=== PATIENT | female | born 1955 | race Caucasian/White ===

== ENCOUNTER 2016-07-30 23:29 | Emergency (ER) | payer OTHER ==
--- NOTE | 2016-07-30 23:35 | PDOC ---
History of Present Illness - General Chief Complaint: Respiratory Stated Complaint: " i AM HAVING AN ASTHMA ATTACK" Time Seen by Provider: 07/30/16 23:34 - History of Present Illness Initial Comments: This 61-year-old woman with a history of HTN, history of breast cancer, GERD, asthma is currently undergoing diagnostic workup for asthma. Patient has had nonproductive chronic cough for the last 3 months. She states she is seeing a manager assisted living who has diagnosed her as having "moderate persistent asthma". Full pulmonary function tests are scheduled for this coming week. Meanwhile, she has been placed on ipratropium nasal spray and steroid nasal spray. Tonight , she had persisting cough and feeling of shortness of breath. She called her manager assisted living group and was told to come to the emergency room for nebulizer treatment and steroids therapy. Patient has no history of smoking since quitting at age 24. She has no history of exposure to secondhand smoke. No known environmental/inhalational ALLERGIES. She does state that her mother who is a nonsmoker also had asthma. No recent fevers/chills, production of sputum or audible wheezing. Past History - Past Medical History Allergies/Adverse Reactions: Allergies Allergy/AdvReac Type Severity Reaction Status Date / Time levofloxacin [From Levaquin] Allergy Verified 07/30/16 23:30 Penicillins Allergy Verified 07/30/16 23:30 Sulfa (Sulfonamide Allergy Verified 07/30/16 23:30 Antibiotics) Home Medications: Ambulatory Orders Alprazolam [Xanax] 0.5 mg PO ASDIR PRN 02/29/16 Anastrozole [Arimidex -] 1 mg PO DAILY 02/29/16 Aspirin [Aspirin EC] 81 mg PO DAILY 02/29/16 Atenolol [Tenormin -] 5 mg PO DAILY 02/29/16 Chlordiazepoxide [Librium -] 25 mg PO DAILY 02/29/16 Cyanocobalamin [Vitamin B12 -] 100 mcg PO DAILY 02/29/16 Ezetimibe [Zetia] 10 mg PO DAILY 02/29/16 L.acidoph,Paracasei, B.lactis [Probiotic] 1 each PO DAILY 02/29/16 Lamotrigine [Lamictal] 100 mg PO DAILY 02/29/16 Colwell-3 Fatty Acids [Fish Oil] 300 mg PO DAILY 02/29/16 Acetaminophen [Tylenol .Regular Strength -] 650 mg PO Q4H PRN #0 tablet Magnesium 250 mg PO DAILY #30 tablet 03/01/16 Ipratropium 0.02% Nebulizer [Atrovent] 1 neb NEB TID #30 vial 07/31/16 Methylprednisolone [Medrol Dose Isacc] 4 mg PO ASDIR #21 tablet 07/31/16 Nebulizer [Lc D Nebulizer Set] 1 each NEB QID PRN #1 each 07/31/16 Anemia: No Asthma: No Cancer: Yes (LEFT BREAST CANCER) Cardiac Disorders: Yes (SVT) CVA: No COPD: No CHF: No Dementia: No Diabetes: No GI Disorders: Yes (gerd w/large esophageal ulcer) Disorders: No HTN: Yes Hypercholesterolemia: Yes Liver Disease: No Psychiatric Problems: Yes (depression) Seizures: No Thyroid Disease: No - Surgical History Abdominal Surgery: No Appendectomy: Yes Cardiac Surgery: No Cholecystectomy: No Lung Surgery: No Neurologic Surgery: No Orthopedic Surgery: No - Immunization History Td Vaccination: No - Psycho/Social/Smoking Cessation Hx Anxiety: No Suicidal Ideation: No Smoking Status: No Smoking History: Never smoked Have you smoked in the past 12 months: Yes Number of Cigarettes Smoked Daily: 0 Hx Alcohol Use: No Drug/Substance Use Hx: No Substance Use Type: None Hx Substance Use Treatment: No Review of Systems - Review of Systems Able to Perform ROS?: Yes Comments:: 12 point review of systems is negative except for what is noted in the history of present illness *Physical Exam - Physical Exam Comments: GENERAL:adult female, alert and oriented 3, coughing frequently but speaking in full sentences HEAD: Normal with no signs of trauma. EYES: PERRLA, EOMI, sclera anicteric, conjunctiva clear. ENT: Ears normal, nares patent, oropharynx clear without exudates. Dry mucous membranes. NECK: Normal range of motion, supple without lymphadenopathy, JVD, or masses. LUNGS: Breath sounds equal, clear to auscultation bilaterally. No wheezes, and no crackles. HEART:Regular rate and rhythm, normal S1 and S2 without murmur, rub or gallop. ABDOMEN:.normal bowel sounds No guarding,tenderness or rebound.No masses No distention. EXTREMITIES: Normal range of motion, no edema. No clubbing or cyanosis. No erythema, or tenderness. NEUROLOGICAL: Cranial nerves II through XII grossly intact. Normal speech. No focal neurological deficits. MUSCULOSKELETAL: Back non-tender to palpation, no CVA tenderness SKIN: Warm, Dry, normal turgor, no rashes or lesions noted. initial peak flow is 160 L/minute Progress Note - Progress Note Progress Note: Because the patient has sulfa ALLERGY, ipratropium nebulizer will be administered. Solu-Medrol 125 mg will be given IV. Medical Decision Making - Medical Decision Making 07/31/16 01:47 Patient improved symptomatically after 2 nebulizer treatments of Atrovent and 125 mg of Solu-Medrol IV. Patient will be discharged with follow-up with her manager assisted living. Prescriptions for ipratropium nebulizer treatments to be used up to 4 times a day as needed for shortness of breath/wheezing and Medrol Dosepak will be sent to her pharmacy. She should return to the emergency room if she has persistent shortness of breath or develops wheezing/fever/productive cough. *DC/Admit/Observation/Transfer Diagnosis at time of Disposition: Asthma exacerbation - Discharge Dispostion Disposition: HOME Condition at time of disposition: Stable - Prescriptions Prescriptions: Ipratropium 0.02% Nebulizer [Atrovent] 1 neb NEB TID #30 vial Nebulizer [Lc D Nebulizer Set] 1 each NEB QID PRN #1 each PRN Reason: Shortness Of Breath Methylprednisolone [Medrol Dose Isacc] 4 mg PO ASDIR #21 tablet - Patient Instructions Printed Discharge Instructions: Asthma -- Adult Additional Instructions: Medrol dosepak: taper as directed, start tomorrow Atrovent nebulizer treatment as needed up to 4 times day followup with your manager assisted living as scheduled return to ER if you have shortness of breath or persistent wheezing
[2016-07-31] MEDS ORDERED: IPRATROPIUM BR 0.02% 0.5 MG/2.5 ML VIAL.NEB. NEB ONE ×4 (00:01→01:08)
[2016-07-31] MEDS ORDERED: methylPREDNISolone NA SUCC 125 MG/2 ML VIAL IVPUSH ONE (00:02)
[2016-07-31] MEDS ORDERED: methylPREDNISolone NA SUCC 125 MG/2 ML VIAL ONE (00:04)
[2016-07-31 00:35] VITALS: TEMP 98.6; BMI 24.5
[2016-07-31 01:53] VITALS: BP 142/82; PULSE 88
== END 2016-07-31 01:53 | disposition home or self-care (01) ==
LOC: FER 23:29
PROC: 3E0F7GC Introduction of Other Therapeutic Substance into Respiratory Tract, Via Natural or Artificial Opening (ICD-10-PCS; principal; 2016-07-30)
PROC: 3E033GC Introduction of Other Therapeutic Substance into Peripheral Vein, Percutaneous Approach (ICD-10-PCS; 2016-07-30)
DX: J45.901 Unspecified asthma with (acute) exacerbation (principal); K21.9 Gastro-esophageal reflux disease without esophagitis; Z85.3 Personal history of malignant neoplasm of breast; I10 Essential (primary) hypertension; Z79.82 Long term (current) use of aspirin; I47.1 Supraventricular tachycardia
CPT/HCPCS: 99282-25

== ENCOUNTER 2021-10-25 11:46 | Emergency (ER) | payer OTHER ==
[2021-10-25] MEDS ORDERED: DIPHTH,PERTUSS(ACELL),TET 0.5 ML DISP.SYRIN IM ONE ×2 (12:02→12:09)
[2021-10-25 12:07] VITALS: BP 130/65; PULSE 74; TEMP 98.1; BMI 21.9
[2021-10-25] MEDS ORDERED: LIDOCAINE HCL 2% (50ML VIAL) INF ONE (12:11)
[2021-10-25] MEDS ORDERED: LIDOCAINE HCL 2% (20ML MULTI-DOSE VIAL) ONE (12:18)
== END 2021-10-25 13:44 | disposition home or self-care (01) ==
LOC: FER 11:46
PROC: 0HQ0XZZ Repair Scalp Skin, External Approach (ICD-10-PCS; principal; 2021-10-25)
PROC: 3E0234Z Introduction of Serum, Toxoid and Vaccine into Muscle, Percutaneous Approach (ICD-10-PCS; 2021-10-25)
DX: S01.01XA Laceration without foreign body of scalp, initial encounter (principal); W01.0XXA Fall on same level from slipping, tripping and stumbling without subsequent striking against object, initial encounter
CPT/HCPCS: 70450-TC; 90715; 99284-25

== ENCOUNTER 2021-11-25 06:13 | Day surgery (SDC) | payer MEDICARE, OTHER ==
[2021-11-16 13:56] VITALS: BMI 22.6
[2021-11-25] MEDS ORDERED: GENTAMICIN SO4 80 MG/2 ML VIAL ONE (07:18)
[2021-11-25] MEDS ORDERED: ceFAZolin SODIUM 1 GM VIAL ONE ×2 (07:18→08:25)
[2021-11-25] MEDS ORDERED: EPINEPHrine/PF 1 MG/1 ML (1:1,000) AMPULE ONE ×3 (07:18→08:18)
[2021-11-25] MEDS ORDERED: LIDOCAINE HCL 1%, 10 MG/ML (20ML VIAL) ONE (07:18)
[2021-11-25] MEDS ORDERED: BUPIVACAINE HCL 200 ML ONE (07:19)
[2021-11-25] MEDS ORDERED: SODIUM BICARBONATE 8.4% 50 MEQ/50 ML VIAL ONE ×3 (07:23→08:18)
[2021-11-25] MEDS ORDERED: LIDOCAINE HCL 2% (20ML MULTI-DOSE VIAL) ONE ×2 (07:27→08:18)
[2021-11-25] MEDS ORDERED: LIDOCAINE HCL/PF 2% SDV 5ML VIAL ONE (07:53)
[2021-11-25] MEDS ORDERED: PROPOFOL 20 ML ONE ×2 (07:53)
[2021-11-25] MEDS ORDERED: SUCCINYLCHOLINE CHLORIDE 200 MG/10 ML SYRINGE ONE (07:53)
[2021-11-25] MEDS ORDERED: MIDAZOLAM HCL 2 MG/2 ML SINGLE DOSE VIAL ONE (07:53)
[2021-11-25] MEDS ORDERED: LIDOCAINE HCL 2% JELLY (5 ML/TUBE) ONE (07:53)
[2021-11-25] MEDS ORDERED: SEVOFLURANE 250 ML BTL ONE (07:55)
[2021-11-25] MEDS ORDERED: BUPIVACAINE HCL/EPINEPHRINE/PF 30 ML VIAL IJ ONE (08:03)
[2021-11-25] MEDS ORDERED: GLYCOPYRROLATE 0.2 MG/1 ML VIAL ONE (08:24)
[2021-11-25] MEDS ORDERED: KETOROLAC TROMETHAMINE 30 MG/1 ML VIAL ONE (08:25)
[2021-11-25] MEDS ORDERED: DEXAMETHASONE SOD PHOSPHATE 4 MG/1 ML VIAL ONE (08:25)
[2021-11-25] MEDS ORDERED: ONDANSETRON 4 MG/2 ML VIAL ONE (08:25)
[2021-11-25] MEDS ORDERED: ONDANSETRON 4 MG/2 ML VIAL IVPUSH PRN ×2 (09:32→12:45)
[2021-11-25] MEDS ORDERED: ACETAMINOPHEN 325 MG TABLET (FP) PO PRN ×2 (09:32→12:45)
[2021-11-25] MEDS ORDERED: oxyCODONE HCL 5 MG TABLET PO PRN ×2 (09:32)
[2021-11-25] MEDS ORDERED: PROMETHAZINE HCL 25 MG/1 ML VIAL IVPUSH PRN (09:32)
[2021-11-25] MEDS ORDERED: ACETAMINOPHEN 1000 MG/100 ML BAG IVPB ONE ×2 (09:35→12:41)
[2021-11-25] MEDS ORDERED: ACETAMINOPHEN INJECTION 100 ML IVPB ONE (09:40)
[2021-11-25 10:54] VITALS: TEMP 96.9
[2021-11-25 11:27] VITALS: BP 128/74; PULSE 74
[2021-11-25] MEDS ORDERED: LACTATED RINGERS SOLUTION 1,000 ML IV SCH (12:45)
== END 2021-11-25 12:00 | disposition home or self-care (01) ==
LOC: FASU 06:13
PROVIDERS: ATTEND Plastic Surgery
PROC: 0HRV37Z Replacement of Bilateral Breast with Autologous Tissue Substitute, Percutaneous Approach (ICD-10-PCS; principal; 2021-11-25 08:29)
DX: C50.912 Malignant neoplasm of unspecified site of left female breast (principal); Z90.13 Acquired absence of bilateral breasts and nipples; N65.0 Deformity of reconstructed breast
CPT/HCPCS: 86850; 86900; 86901; 94760

== ENCOUNTER 2022-12-06 17:40 | Emergency (ER) | payer OTHER ==
[2022-12-06 18:22] VITALS: RESP 18; BMI 25.4
[2022-12-06 18:42] LABS: HEMATOCRIT 36.7 % (32.4-45.2); HEMOGLOBIN 12.6 G/dL (10.7-15.3); MCH 31.7 pg (25.7-33.7); MCHC 34.4 g/dl (32.0-36.0); MEAN CELL VOLUME 92.1 fl (80-96); PLATELET COUNT 160.8 10^3/uL (134-434); RBC 3.98 10^6/uL (3.60-5.2); RDW 13.3 % (11.6-15.6); WHITE BLOOD COUNT 5.3 10^3/uL (4.0-10.8)
[2022-12-06 18:54] LABS: ALBUMIN 4.4 g/dl (3.4-5.0); BILIRUBIN,TOTAL 0.5 mg/dl (0.2-1); BLOOD UREA NITROGEN 20.4 mg/dl (7-18); CALCIUM 9.6 mg/dl (8.5-10.1); CREATININE 0.7 mg/dl (0.6-1.3); POTASSIUM 4.1 mmol/L (3.5-5.1); SGOT/AST 13.5 U/L (15-37); SGPT/ALT 12.9 U/L (7-52); TOT PROT 6.4 g/dl (6.4-8.2)
[2022-12-06 20:07] LABS: PLATELET ESTIMATE ADEQUATE
[2022-12-06 20:29] VITALS: BP 138/81; PULSE 70; TEMP 98.9
== END 2022-12-06 21:00 | disposition home or self-care (01) ==
LOC: FER 17:40
DX: R41.9 Unspecified symptoms and signs involving cognitive functions and awareness (principal)
CPT/HCPCS: 36415; 70450-TC; 71045-TC-FY; 80053; 81003; 81015; 84484; 85027; 93005; 99285-25

== ENCOUNTER 2025-01-26 12:22 | Emergency (ER) | payer OTHER ==
[2025-01-26 12:52] VITALS: BP 132/79; PULSE 72; RESP 15; TEMP 98.2; BMI 24.5
== END 2025-01-26 14:33 | disposition home or self-care (01) ==
LOC: FER 12:22 → SUPCPDRO 12:22 → FER 14:33
DX: F07.81 Postconcussional syndrome (principal); R51.9 Headache, unspecified; W01.0XXA Fall on same level from slipping, tripping and stumbling without subsequent striking against object, initial encounter
CPT/HCPCS: 70450-TC; 99284-25